=== PATIENT | male | born 1965 | race African-American/Black ===

== ENCOUNTER 2019-09-15 22:12 | Emergency (ER) | payer OTHER ==
--- NOTE | 2019-09-15 22:16 | PDOC ---
History of Present Illness - General Chief Complaint: Foreign Body (FB) Stated Complaint: FISH BONE IN THROAT SINCE MONDAY Time Seen by Provider: 09/15/19 22:16 History Source: Patient Exam Limitations: No Limitations - History of Present Illness Initial Comments: 09/15/19 23:37 throat fb sensation; swallowed a fish bone on Is this a multiple visit Asthma Patient?: No Past History - Travel Traveled outside of the country in the last 30 days: No Close contact w/someone who was outside of country & ill: No - Past Medical History Allergies/Adverse Reactions: Allergies Allergy/AdvReac Type Severity Reaction Status Date / Time No Known Allergies Allergy Verified 09/15/19 22:14 Home Medications: Ambulatory Orders NK [No Known Home Medication] 09/15/19 Review of Systems - Review of Systems Constitutional: No: Symptoms Reported, See HPI, Chills, Diaphoresis, Fever, Loss of Appetite, Malaise, Night Sweats, Weakness, Weight Stable, Unintentional Wgt. Loss, Unexplained wgt Loss, Other HEENTM: Yes: Throat Pain. No: Symptoms Reported, See HPI, Eye Pain, Blurred Vision, Tearing, Recent change in vision, Double Vision, Cataracts, Ear Pain, Ocular Prothesis, Ear Discharge, Nose Pain, Nose Congestion, Tinnitus, Nose Bleeding, Hearing Loss, Throat Swelling, Mouth Pain, Dental Problems, Difficulty Swallowing, Mouth Swelling, Other Respiratory: No: Symptoms reported, See HPI, Cough, Orthopnea, Shortness of Breath, SOB with Exertion, SOB at Rest, Stridor, Wheezing, Productive cough, Hemoptysis, Other Cardiac (ROS): No: Symptoms Reported, See HPI, Chest Pain, Edema, Irregular Heart Rate, Lightheadedness, Palpitations, Syncope, Chest Tightness, Other ABD/GI: No: Symptoms Reported, See HPI, Abdominal Distended, Abd. Pain w/ defecation, Blood Streaked Bowels, Constipated, Diarrhea, Difficulty Swallowing , Nausea, Poor Appetite, Poor Fluid Intake, Rectal Bleeding, Vomiting, Indigestion, Abdominal cramping, Tarry Stools, Other : No: Symptoms Reported, See HPI, Burning, Dysuria, Discharge, Frequency, Flank Pain, Hematuria, Incontinence, Pain, Urgency, Testicular Mass, Testicular Swelling, Lesions, Testicular Pain, Other Musculoskeletal: No: Symptoms Reported, See HPI, Back Pain, Gout, Joint Pain, Joint Swelling, Muscle Pain, Muscle Weakness, Neck Pain, Joint Stiffness, Other Integumentary: No: Symptoms Reported, See HPI, Bruising, Change in Color, Change in Hair/Nails, Dryness, Erythema, Flushing, Lesions, Lumps, Pallor, Pruritus, Rash, Sweating, Other Neurological: No: Symptoms reported, See HPI, Headache, Numbness, Paresthesia, Pre-Existing Deficit, Seizure, Tingling, Tremors, Weakness, Unsteady Gait, Ataxia, Dizziness, Other Psychiatric: No: Anxiety, Depression, Frequent Crying, Stressors, Sleep Pattern Change, Emotional Problems, Mood Swings, Change in Appetite, Other Endocrine: No: Symptoms Reported, See HPI, Excessive Sweating, Flushing, Intolerance to Cold, Intolerance to Heat, Increased Hunger, Increased Thirst, Increased Urine, Unexplained Weight Gain, Unexplained Weight Loss, Change in Weight, Other Hematologic/Lymphatic: No: Symptoms Reported, See HPI, Anemia, Blood Clots, Easy Bleeding, Easy Bruising, Bleeding Diathesis, Lymph Node Abnormalities, Swollen Glands, Other *Physical Exam - Physical Exam General Appearance: Yes: Nourished, Appropriately Dressed. No: Apparent Distress, Disheveled HEENT: positive: EOMI, KEENAN, Normal ENT Inspection, Normal Voice, Symmetrical, TMs Normal, Pharynx Normal. negative: Pale Conjunctivae, Photophobia, Scleral Icterus (R), Scleral Icterus (L), Muffled/Hoarse voice, Pharyngeal Erythema, Tonsillar Exudate, Tonsillar Erythema, Nasal Congestion, Rhinorrhea, Sinus Tenderness, Orbits, Hearing Decreased, Hearing Grossly Normal, TM Bulging, TM Dull, TM Erythema, Lesions, Matthews, Excessive drooling, Thrush, Other Neck: positive: Trachea midline, Normal Thyroid, Supple. negative: Tender, Rigid, Carotid bruit, Decreased range of motion, Stridor, Lymphadenopathy (R), Lymphadenopathy (L), Rigidity, Tender lateral, Tender midline, Thyromegaly, Other Respiratory/Chest: positive: Lungs Clear, Normal Breath Sounds. negative: Chest Tender, Respiratory Distress, Accessory Muscle Use, Labored Respiration, Rapid RR, Decreased Breath Sounds, Paradoxal Breathing, Crackles, Rales, Rhonchi , Stridor, Wheezing, Hyperresonant, Dullness, Plerual Rub, Other Cardiovascular: positive: Regular Rhythm, Regular Rate, S1, S2. negative: Edema , JVD, Murmur, Bradycardia, Tachycardia, Diastolic Murmur, Systolic Murmur, Gallop/S3, Gallop/S4, Irregularly Irregular, Irregular, Other Gastrointestinal/Abdominal: positive: Normal Bowel Sounds, Flat, Soft. negative : Tender, Organomegaly, Pulsatile Mass, Increased Bowel Sounds, Decreased BS, Protuberent, Distended, Guarding, Rebound, Tenderness, Hernia, Mass, Hepatomegaly, Spleenomegaly, Other Rectal Exam: positive: deferred Lymphatic: negative: Adenopathy, Tenderness, Other Musculoskeletal: positive: Normal Inspection. negative: CVA Tenderness, CVA Tenderness (R), CVA Tenderness (L), Decreased Range of Motion, Muscle Spasm, Vertebral Tenderness, Other Integumentary: positive: Normal Color, Dry, Warm. 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 CT ST neck done Looks like no FB Pt will be sent to follow with ENT. 09/16/19 00:19 Patient Name: LAVERNE MOFFETT THIS IS A PRELIMINARY REPORT FROM [facility] DATE OF SERVICE: 2019-09-15 23:12:15 IMAGES: [id number] EXAM: SOFT TISSUE NECK CT W/O CONTR HISTORY: Fishbone stuck in throat COMPARISON: None. FINDINGS: The visualized brain parenchyma is unremarkable. Patent airway The pharynx, parapharyngeal spaces, epiglottis, vallecula, perform sinuses, and vocal cords are normal No radiopaque foreign body The lung apices are clear Mild degenerative changes of the spine IMPRESSION: 1. No radiopaque foreign body Discharge - Discharge Information Problems reviewed: Yes Clinical Impression/Diagnosis: Foreign body sensation in throat Condition: Stable Disposition: HOME - Admission No - Follow up/Referral Referrals: Howard Haley MD [Staff Physician] - - Patient Discharge Instructions Patient Printed Discharge Instructions: DI for Foreign Body, Swallowed-Adult - Post Discharge Activity
[2019-09-15 22:21] VITALS: BP 121/85; PULSE 62; TEMP 98.4; BMI 24.9
== END 2019-09-16 00:24 | disposition home or self-care (01) ==
LOC: FER 22:12
DX: R09.89 Other specified symptoms and signs involving the circulatory and respiratory systems (principal)
CPT/HCPCS: 70360-TC-FY; 70490-TC; 99281-25

== ENCOUNTER 2020-05-07 23:09 | Emergency (ER) | payer OTHER ==
[2020-05-07 23:14] VITALS: BP 129/79; PULSE 67; TEMP 98.2; BMI 25.0
[2020-05-07] MEDS ORDERED: DIPHTH,PERTUSS(ACELL),TET 0.5 ML DISP.SYRIN IM ONE (23:59)
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
== END 2020-05-08 00:08 | disposition home or self-care (01) ==
LOC: FER 23:09
DX: S51.011A Laceration without foreign body of right elbow, initial encounter (principal)
CPT/HCPCS: 99284-25

== ENCOUNTER 2020-05-17 13:15 | Emergency (ER) | payer OTHER ==
--- NOTE | 2020-05-17 13:35 | PDOC ---
Suture Removal/Wound Check HPI - History of Present Illness Chief Complaint: Suture/Staple Removal(Here) Stated Complaint: RIGHT ELBOW SUTURE REMOVAL Time Seen by Provider: 05/17/20 13:34 - Onset of Previous Treatment Comment:: 05/17/20 13:34 Running suture removed from right elbow. Wound healed well. No swelling, erythema, tenderness, or drainage suggestive of infection. Steri-Strips applied after light application of bacitracin. Wound care instructions and follow-up as needed. Past History - Medical History Allergies/Adverse Reactions: Allergies Allergy/AdvReac Type Severity Reaction Status Date / Time No Known Allergies Allergy Verified 09/15/19 22:14 Home Medications: Ambulatory Orders NK [No Known Home Medication] 09/15/19 COPD: No - Psycho-Social/Smoking History Smoking History: Never smoked Have you smoked in the past 12 months: No Discharge - Discharge Information Problems reviewed: Yes Clinical Impression/Diagnosis: Laceration Condition: Improved Disposition: HOME - Admission No - Follow up/Referral - Patient Discharge Instructions Patient Printed Discharge Instructions: DI for Suture Removal - Post Discharge Activity
[2020-05-17 13:40] VITALS: BP 110/70; PULSE 83; TEMP 98.1; BMI 25.0
== END 2020-05-17 13:42 | disposition home or self-care (01) ==
LOC: FER 13:15
DX: S51.011A Laceration without foreign body of right elbow, initial encounter (principal); Y99.9 Unspecified external cause status; Z48.02 Encounter for removal of sutures
CPT/HCPCS: 99281-25